=== PATIENT | female | born 1985 ===

== ENCOUNTER 2018-07-24 08:45 | Emergency (ER) | payer OTHER ==
--- NOTE | 2018-07-24 09:19 | ED PDOC ---
Arrival/HPI - General Chief Complaint: Lower Extremity Problem/Injury Time Seen by Provider: 07/24/18 09:13 Historian: Patient, Partner (Boyfriend), Medical Planner (Boyfriend) - History of Present Illness Narrative History of Present Illness (Text): 07/24/18 09:19 A 33 year old female with no significant past medical history presents to the emergency department s/p fall with a right foot pain since yesterday. Per patient's boyfriend, patient slipped on snow and was limping since yesterday. Patient's boyfriend states patient applied a compress and cream to treat pain to some relief however this morning patient was not able to apply pressure to right foot. Patient reports pain only upon movement. Patient denies any fever, shortness of breath, or any other complaints. Time/Duration: 24 hours (yesterday) Symptom Onset: Sudden Symptom Course: Unchanged Activities at Onset: Light Context: Home Past Medical History - Provider Review Nursing Documentation Reviewed: Yes - Infectious Disease Hx of Infectious Diseases: None - Psychiatric Hx Substance Use: No - Surgical History Hx Section: Yes (2) - Anesthesia Hx Anesthesia: Yes Hx Anesthesia Reactions: No Hx Malignant Hyperthermia: No Family/Social History - Physician Review Nursing Documentation Reviewed: Yes Family/Social History: No Known Family HX Smoking Status: Never Smoked Hx Alcohol Use: Yes Frequency of alcohol use: Socially Hx Substance Use: No Allergies/Home Meds Allergies/Adverse Reactions: Allergies No Known Allergies Allergy (Verified 07/24/18 08:53) Review of Systems - Physician Review All systems were reviewed & negative as marked: Yes - Review of Systems Constitutional: absent: Fevers Respiratory: absent: SOB Physical Exam - Physical Exam Narrative Physical Exam (Text): 07/24/18 09:21 Constitutional: No acute distress. Head: Normocephalic. Atraumatic. Eyes: PERRL. ENT: Moist mucous membranes. CV: DP pulses 2+. Musculoskeletal: No tenderness to 5th metatarsal. Mild foot tenderness. Edema diffused to ankle. Medial and lateral bilateral malleolus tenderness. No tenderness to proximal tibula or fibula. Skin: No rash. Neurologic: Alert, no focal deficit. Vital Signs Reviewed: Yes Vital Signs Temp Pulse Resp BP Pulse Ox 07/24/18 08:49 98 F 85 19 134/83 99 Temperature: Afebrile Blood Pressure: Normal Pulse: Regular Respiratory Rate: Normal Appearance: Positive for: Well-Appearing, Non-Toxic, Comfortable Pain Distress: None Mental Status: Positive for: Alert and Oriented X 3 Medical Decision Making ED Course and Treatment: 07/24/18 09:25 Impression: 33 year old female presenting to the emergency room s/p fall with right foot pain. Plan: -- Chest X-ray -- Xray of right ankle -- Xray of right foot -- Reassess and disposition Progress Notes: 07/24/18 10:56 Procedure: Right Ankle Radiographs Impression: Trimalleolar fracture Dictator:Sterling Murillo MD Procedure: Right Foot Radiographs Impression: Trimalleolar fracture. The foot is otherwise unremarkable Dictator:Sterling Murillo MD Procedure: Chest X-ray Impression: No active disease. Dictator:Sterling Murillo MD, Dr. consulted, states patient to see him in his office on Friday, will require surgery. Posterior splint placed by automotive engineering technician, checked by me. Crutches provided and instructed on their use. - RAD Interpretation Radiology Orders: 07/24/18 09:18 ANKLE RIGHT 3 VIEWS ROUTINE [RAD] Stat FOOT RIGHT 3 VIEWS ROUTINE [RAD] Stat - Scribe Statement The provider has reviewed the documentation as recorded by the Scribisabel Dias All medical record entries made by the Scribe were at my direction and personally dictated by me. I have reviewed the chart and agree that the record accurately reflects my personal performance of the history, physical exam, medical decision making, and the department course for this patient. I have also personally directed, reviewed, and agree with the discharge instructions and disposition. Disposition/Present on Arrival - Present on Arrival Any Indicators Present on Arrival: No History of DVT/PE: No History of Uncontrolled Diabetes: No Urinary Catheter: No History of Decub. Ulcer: No History Surgical Site Infection Following: None - Disposition Have Diagnosis and Disposition been Completed?: Yes Diagnosis: Trimalleolar fracture Disposition: HOME/ ROUTINE Disposition Time: 10:06 Patient Plan: Discharge Condition: STABLE Discharge Instructions (ExitCare): Ankle Fracture Prescriptions: Ibuprofen [Motrin] 1 tab PO Q6 #30 tab Referrals: Jacinto Tello MD [Staff Provider] - Follow up with primary Forms: [employer] ([place]), WORK NOTE
--- NOTE | 2018-07-24 10:35 | RAD ---
Date of service: 07/24/2018 PROCEDURE: Right Ankle Radiographs. HISTORY: ankle injury COMPARISON: None available. FINDINGS: BONES: There is a trimalleolar fracture. There is a displaced obliquely oriented fracture of the distal fibula. There is a transverse comminuted fracture of the medial malleolus. There is a vertically oriented minimally displaced fracture of the posterior malleolus. There is partial dislocation of the ankle joint. JOINTS: As above SOFT TISSUES: Normal. OTHER FINDINGS: None. IMPRESSION: Trimalleolar fracture
--- NOTE | 2018-07-24 10:36 | RAD ---
Date of service: 07/24/2018 PROCEDURE: Right Foot Radiographs. HISTORY: foot injury COMPARISON: None. FINDINGS: BONES: Normal. No fracture. JOINTS: Normal. SOFT TISSUES: Normal. OTHER FINDINGS: Trimalleolar fracture. IMPRESSION: Trimalleolar fracture. The foot is otherwise unremarkable
--- NOTE | 2018-07-24 10:36 | RAD ---
Date of service: 07/24/2018 PROCEDURE: CHEST RADIOGRAPH, 1 VIEW HISTORY: ankle fracture COMPARISON: None available. FINDINGS: LUNGS: Clear. PLEURA: No pneumothorax or pleural fluid seen. CARDIOVASCULAR: No aortic atherosclerotic calcification present. Normal. OSSEOUS STRUCTURES: No significant abnormalities. VISUALIZED UPPER ABDOMEN: Normal. OTHER FINDINGS: None. IMPRESSION: No active disease.
[2018-07-24 11:47] VITALS: BP 125/84; PULSE 76; RESP 18; O2SAT 100
[2018-07-24 12:30] VITALS: TEMP 98.3
== END 2018-07-24 12:06 | disposition home or self-care (01) ==
LOC: ED 08:45
DX: S82.851A Displaced trimalleolar fracture of right lower leg, initial encounter for closed fracture (principal); W00.0XXA Fall on same level due to ice and snow, initial encounter
CPT/HCPCS: 29515; 71045; 73610; 73630; 96372; 99284; J1885